=== PATIENT | male | born 1985 | race Caucasian/White ===

== ENCOUNTER 2018-08-31 12:22 | Emergency (ER) | payer OTHER ==
[~2018-08-31] VITALS: Ht 180.3 cm; Wt 90.7 kg
[~2018-08-31 12:22] MED LIST: AMOX500 PO; ANXIETY MED; CEPH500 PO; CYCL10 PO; HTN MED; HYDACE10B PO; HYDACE5 PO; HYDCHL12.5 PO; HYDR1TAB94 PO; MECL25 PO; NAPR500 PO; NAPR550 PO; PENVK500 PO; POTCHL10ER PO; RXHYDACE PO; RXPENVK250 PO; TOBDEXOPSU OP; TOBR.3OPSO OD; TOBR.3OPSO RIGHTEYE
[2018-08-31] MEDS ORDERED: METCAR500 PO (14:38)
[2018-08-31] MEDS ORDERED: LIDO700A20 TOP (14:38)
== END 2018-08-31 14:48 | disposition home or self-care (01) ==
LOC: ER 12:22
DX: M54.5 Low back pain (principal); I10 Essential (primary) hypertension; Z87.891 Personal history of nicotine dependence
CPT/HCPCS: 72100; 99283-25

== ENCOUNTER 2019-12-03 12:49 | Emergency (ER) | payer OTHER ==
[~2019-12-03] VITALS: Ht 180.3 cm; Wt 90.7 kg
[~2019-12-03 12:49] MED LIST changes: +LIDO700A20 TOP; +METCAR500 PO
[2019-12-03] MEDS ORDERED: ACETAMINOPHEN500 MG PO (16:19)
[2019-12-03] MEDS ORDERED: Valium5 MG PO (16:19)
[2019-12-03] MEDS ORDERED: IBUP600 PO (16:19)
[2019-12-03] MEDS ORDERED: LIDO700A20 TOP (16:19)
== END 2019-12-03 16:23 | disposition home or self-care (01) ==
LOC: ER 12:49
DX: M54.6 Pain in thoracic spine (principal); R51.9 Headache, unspecified; I10 Essential (primary) hypertension; Z87.891 Personal history of nicotine dependence
CPT/HCPCS: 72070; 99283-25; A9270; A9270-GY; J0780; Q0163

== ENCOUNTER → 2020-12-07 | Outpatient (CLI) | payer OTHER ==
[~2020-12-07] MED LIST changes: +ACETAMINOPHEN500 MG PO; +IBUP600 PO; +Valium5 MG PO
[2020-12-07 17:10] LABS: U Amphetamine Screen Not Detected; U Barbituate Screen Not Detected; U Benzodiazapine Screen Not Detected; U Buprenorphine Screen Not Detected; U Cannabinoids Screen DETECTED; U Cocaine Screen Not Detected; U Methadone Screen Not Detected; U Methamphetamine Screen Not Detected; U Opiates Screen DETECTED; U Oxycodone Screen Not Detected; U Phencyclidine Screen Not Detected; U Propoxyphene Screen Not Detected
== END | disposition home or self-care (01) ==
LOC: LAB 13:02 → LAB SHORT 13:02
PROVIDERS: Physician Assistant
DX: Z51.81 Encounter for therapeutic drug level monitoring (principal); Z79.899 Other long term (current) drug therapy

== ENCOUNTER → 2024-09-09 | Outpatient (CLI) | payer OTHER | LOC: LAB 15:23 → LAB SHORT 15:23 | DX: N39.0 Urinary tract infection, site not specified (principal) | CPT/HCPCS: 87086 ==